=== PATIENT | female | born 1970 | race Caucasian/White ===

== ENCOUNTER 2021-03-16 10:57 | Day surgery (SDC) | payer BC ==
[2021-03-12 12:48] LABS: BASOPHILS # (AUTO) 0.1 K/uL (0.0-0.2); BASOPHILS % (AUTO) 2.1 % (0.0-2.0); CALCIUM 8.3 mg/dL (8.4-11.0); CREATININE 0.92 mg/dL (0.55-1.30); EOSINOPHILS # (AUTO) 0.2 K/uL (0.0-0.4); EOSINOPHILS % (AUTO) 5.3 % (0.0-4.0); HEMATOCRIT 35.7 % (36-48); HEMOGLOBIN 11.6 g/dL (12.0-16.0); LYMPHOCYTES # (AUTO) 1.7 K/uL (1.0-5.5); LYMPHOCYTES % (AUTO) 36.3 % (20.5-51.5); MEAN CORPUSCULAR HEMOGLOBIN 27 pg (27-31); MEAN CORPUSCULAR HGB CONC 32 % (32-36); MEAN CORPUSCULAR VOLUME 85 fL (79.0-98.0); MONOCYTES # (AUTO) 0.4 K/uL (0.0-1.0); MONOCYTES % (AUTO) 7.7 % (1.7-9.3); NEUTROPHILS # (AUTO) 2.2 K/uL (1.8-7.7); NEUTROPHILS % (AUTO) 48.6 % (40.0-70.0); PLATELET COUNT (AUTO) 256 K/uL (130-430); POTASSIUM 3.8 mmol/L (3.5-5.1); RED BLOOD CELL COUNT(AUTO) 4.23 MIL/uL (4.2-6.2); RED CELL DISTRIBUTION WIDTH 14.1 % (9.0-15.0); WHITE BLOOD COUNT (AUTO) 4.6 K/uL (4.8-10.8)
[2021-03-12 12:52] LABS: BILIRUBIN,URINE NEGATIVE (NEGATIVE); BLOOD, URINE NEGATIVE (NEGATIVE); CLARITY/URINE CLEAR (CLEAR); COLOR,URINE YELLOW (YELLOW); GLUCOSE,URINE 2+ (NEGATIVE); KETONES,URINE NEGATIVE (NEGATIVE); LEUKOCYTE ESTERASE ,URINE NEGATIVE (NEGATIVE); NITRITE, URINE NEGATIVE (NEGATIVE); PROTEIN URINE NEGATIVE (NEGATIVE); UROBILINOGEN,URINE 0.2 (0.2-1.0)
[2021-03-12 13:00] LABS: PROTHROMBIN TIME 9.9 SECS (9.5-12.5)
[2021-03-15 11:18] LABS: HCG,QUAL RESULT NEGATIVE (NEGATIVE)
[~2021-03-16] VITALS: Ht 162.6 cm; Wt 104.3 kg
[2021-03-16] MEDS ORDERED: SEVOFLURANE 15 MIN GAS INH ONE (11:45)
[2021-03-16] MEDS ORDERED: DEXAMETHASONE SOD PHOSPHATE 4 MG/ML VIAL IVP ONE (11:45)
[2021-03-16] MEDS ORDERED: SUCCINYLCHOLINE CHLORIDE 20 MG/ML(QUELICIN) IVP ONE (11:45)
[2021-03-16] MEDS ORDERED: MIDAZOLAM HCL 5 MG/5 ML VIAL IVP ONE (11:45)
[2021-03-16] MEDS ORDERED: METOCLOPRAMIDE HCL 10 MG/2 ML VIAL IVP ONE (11:45)
[2021-03-16] MEDS ORDERED: PROPOFOL 200MG/ 20ML VIAL (DIPRIVAN) IV ONE (11:45)
[2021-03-16] MEDS ORDERED: NS 1000 ML IV.SOLN IV ONE (11:45)
[2021-03-16] MEDS ORDERED: BUPIVACAINE /EPINEPHRINE/PF 0.25% 30 ML VIAL INJ ONE (11:45)
[2021-03-16] MEDS ORDERED: LR 1,000 ML IV.SOLN IV ONE (11:45)
[2021-03-16] MEDS ORDERED: fentaNYL CITRATE/PF 100 MCG/2 ML AMP IVP ONE (11:45)
[2021-03-16] MEDS ORDERED: NS IRRIG SOLN 1000 ML IR ONE (11:45)
[2021-03-16] MEDS ORDERED: HYDROmorphone 2 MG/ML VIAL IVP PRN ×2 (12:30)
[2021-03-16] MEDS ORDERED: MORPHINE 4 MG INJ. 4 MG/ML VIAL IVP PRN (12:30)
[2021-03-16] MEDS ORDERED: HYDROmorphone 1 MG/ML INJ. CARTRIDGE IVP PRN (12:30)
[2021-03-16] MEDS ORDERED: MEPERIDINE HCL/PF 25 MG/ML DISP.SYRIN IVP PRN (12:30)
[2021-03-16] MEDS ORDERED: LR 1,000 ML IV SCH (12:30)
[2021-03-16] MEDS ORDERED: HYDROmorphone 2 MG/ML VIAL ONE (12:36)
[2021-03-16 13:52] VITALS: BP_SYST 145
[2021-03-16] MEDS ORDERED: ONDANSETRON HCL 4 MG/2 ML VIAL ONE (16:21)
[2021-03-16] MEDS ORDERED: ONDANSETRON HCL 4 MG/2 ML VIAL IVP ONE ×2 (16:30)
== END 2021-03-16 18:00 | disposition home or self-care (01) ==
LOC: SDS 10:57 → SMU 10:59 → SDS 18:00
PROVIDERS: ATTEND Orthopaedic Surgery
DX: M17.12 Unilateral primary osteoarthritis, left knee (principal); M23.212 Derangement of anterior horn of medial meniscus due to old tear or injury, left knee; M94.262 Chondromalacia, left knee; E11.9 Type 2 diabetes mellitus without complications; K21.9 Gastro-esophageal reflux disease without esophagitis; J45.909 Unspecified asthma, uncomplicated; E78.00 Pure hypercholesterolemia, unspecified; Z79.4 Long term (current) use of insulin; Z79.01 Long term (current) use of anticoagulants; Z79.899 Other long term (current) drug therapy
CPT/HCPCS: 29881; 36415; 71046; 80048; 81003; 82962; 84703 ×2; 85025; 85610; 85730; 93005; J0330; J1100; J1170; J2250; J2405; J2704; J2765; J3010; J3490; J7030; J7120; U0003